=== PATIENT | male | born 1975 | race Caucasian/White ===

== ENCOUNTER 2023-05-08 03:03 | Emergency (ER) | payer MEDICAID, OTHER ==
[~2023-05-08] VITALS: Ht 188 cm; Wt 9.1 kg
[2023-05-08 03:06] VITALS: BP 125/86; PULSE 113; RESP 18; TEMP 98.1; O2SAT 98
--- NOTE | 2023-05-08 06:39 | NUR ---
not in lobby.
--- NOTE | 2023-05-08 07:05 | NUR ---
not in lobby.
--- NOTE | 2023-05-08 07:30 | NUR ---
not in lobby.
== END 2023-05-08 07:53 | disposition left against medical advice (07) ==
LOC: ER 03:03
DX: L97.828 Non-pressure chronic ulcer of other part of left lower leg with other specified severity (principal); Z53.21 Procedure and treatment not carried out due to patient leaving prior to being seen by health care provider
CPT/HCPCS: 99281